=== PATIENT | female | born 1975 | race Two or more races ===

== ENCOUNTER 2016-06-04 14:50 | Emergency (ER) | payer OTHER ==
[2016-06-04] MEDS ORDERED: predniSONE 20 MG TABLET PO STA (16:28)
[2016-06-04] MEDS ORDERED: predniSONE 20 MG TABLET ONE (16:32)
== END 2016-06-04 16:38 | disposition home or self-care (01) ==
DX: L50.9 Urticaria, unspecified (principal); R03.0 Elevated blood-pressure reading, without diagnosis of hypertension; F17.200 Nicotine dependence, unspecified, uncomplicated
CPT/HCPCS: 99283; J7512